=== PATIENT | female | born 2000 | race Caucasian/White ===

== ENCOUNTER → 2020-06-09 16:24 | Outpatient (CLI) | payer OTHER, MEDICAID, SELFPAY ==
[2020-06-09 17:27] LABS: Add Manual Diff / Slide Review NO; Basophils Absolute Auto 100 /uL (0-100); Basophils Percent Auto 0.8 % (0-2); Eosinophils Absolute Auto 200 /uL (0-450); Eosinophils Percent Auto 1.7 % (2-4); Hematocrit 39.4 % (36-46); Hemoglobin 13.3 g/dL (12.0-16.0); Lymphocytes Absolute Auto 2100 /uL (1100-4500); Lymphocytes Percent Auto 16.2 % (25-40); Mean Corpuscular HGB Conc 33.7 % (30-36); Mean Corpuscular Hemoglobin 30.3 PG (26-34); Mean Corpuscular Volume 90.1 fL (80-100); Monocytes Absolute Auto 1100 /uL (0-900); Monocytes Percent Auto 8.7 % (3-14); Neutrophils Absolute Auto 9300 /uL (1500-7000); Neutrophils Percent Auto 72.6 % (50-75); Platelet Count 438 X10^3/uL (150-400); Red Blood Cell Count 4.37 X10^6/uL (4.0-5.2); Red Cell Distribution Width 13.8 % (11.6-14.8); White Blood Cell Count 12.7 X10^3/uL (4.5-11.0)
[2020-06-09 17:38] LABS: Albumin 4.7 g/dL (3.5-5.0); Albumin Globulin Ratio 1.2 (1.0-2.8); Alkaline Phosphatase 265 U/L (38-126); Aspartate Aminotransferase 410 IU/L (14-36); BUN Creatinine Ratio 18.2 (6-22); Bilirubin Total 1.3 mg/dL (0.2-1.3); Blood Urea Nitrogen 12 mg/dL (7-17); Calcium 9.7 mg/dL (8.4-10.2); Carbon Dioxide 32 mmol/L (22-32); Chloride 102 mmol/L (98-107); Estimated Glomerular Filt Rate > 60.0 mL/min (>60); Globulin 3.9 g/dL (1.7-4.1); Glucose 99 mg/dL (70-100); HEMOLYSIS < 15 (0-50); Lipase 49 U/L (23-300); Potassium 4.2 mmol/L (3.4-5.1); Sodium 139 mmol/L (137-145); Total Protein 8.6 g/dL (6.3-8.2)
[2020-06-09 17:47] LABS: Alanine Aminotransferase 873 IU/L (<35)
== END ==
PROVIDERS: PCP Family Medicine; Referring Provider Family Medicine; Visit Provider Family Medicine
DX: K80.20 Calculus of gallbladder without cholecystitis without obstruction (principal)
CPT/HCPCS: 36415; 80053; 83690; 85025

== ENCOUNTER → 2020-06-10 12:13 | Outpatient (CLI) | payer OTHER, MEDICAID, SELFPAY ==
--- NOTE | 2020-06-10 12:21 | DI.CT.S_ITS ---
PROCEDURE: CT ABDOMEN PELVIS W CON INDICATIONS: History of cholelithiasis and ovarian cyst TECHNIQUE: After the administration of oral and intravenous contrast, 5 mm thick sections acquired from the diaphragms to the symphysis. 5 mm thick coronal and sagittal reformats were performed. For radiation dose reduction, the following was used: automated exposure control, adjustment of mA and/or kV according to patient size. COMPARISON: None. FINDINGS: Image quality: Excellent. ABDOMEN: Lung bases: Lung bases are clear. Heart size is normal. Solid organs: Liver is normal in size and enhancement. Gallbladder wall appears thickened. No radiopaque gallstones. Biliary system is dilated. There is mild intrahepatic biliary dilation. Common bile duct measures up to 11 mm. No common bile duct stones are identified. Pancreas enhances normally. Spleen is normal in size and enhancement. No adrenal nodules. Kidneys are normal in size and enhancement, without hydronephrosis. Peritoneum and bowel: Stomach, small bowel, and colon loops are normal in caliber. The 2nd portion of the duodenum appears thickened. There is colonic wall thickening involving the ascending colon, hepatic flexure, transverse colon, splenic flexure, descending colon and sigmoid colon consistent with colitis. Normal appendix. No free fluid or air. Nodes and vessels: No retroperitoneal or mesenteric adenopathy. Numerous small mesenteric lymph nodes are noted, nonspecific. Aorta and inferior vena cava are normal in caliber. Miscellaneous: No ventral hernias. PELVIS: Genitourinary: Bladder wall thickness is normal. Uterus is normal. There is a 3.6 cm cyst in the left adnexa behind the left ovary. Ovaries are otherwise unremarkable. Miscellaneous: No inguinal hernias or adenopathy. Bones: No suspicious bony lesions. No vertebral body compression fractures. IMPRESSION: 1. There is diffuse colonic wall thickening consistent with colitis. Differential diagnoses include inflammatory bowel disease versus infectious colitis. 2. Gallbladder wall appears thickened. No radiopaque gallstones. Recommend ultrasound or HIDA scan for further evaluation. 3. There is intrahepatic and extrahepatic biliary dilation. No obstructive intraductal stones are identified. Please correlate with serum bilirubin. MRCP is recommended for further evaluation if clinically indicated. 4. Duodenum appears thickened, which could be related to inflammatory bowel disease or infectious duodenitis. The area of thickened duodenum involves ampulla. 5. There is a 3.6 cm cyst in the left adnexa behind the left ovary, consistent with a paraovarian cyst. There is no free fluid in the cul-de-sac. Dictated by: Quan Brooke M.D. on 06/10/2020 at 13:43 Approved by: Quan Brooke M.D. on 06/10/2020 at 13:57
== END ==
PROVIDERS: PCP Family Medicine; Referring Provider Family Medicine; Visit Provider Family Medicine
DX: N83.202 Unspecified ovarian cyst, left side (principal); B17.9 Acute viral hepatitis, unspecified; K80.80 Other cholelithiasis without obstruction
CPT/HCPCS: 36415; 74177; 80053; 80074; 87389; Q9967

== ENCOUNTER → 2020-06-10 13:24 | Outpatient (CLI) | payer OTHER, MEDICAID, SELFPAY ==
[2020-06-10 14:49] LABS: Alanine Aminotransferase 646 IU/L (<35); Albumin 4.6 g/dL (3.5-5.0); Albumin Globulin Ratio 1.4 (1.0-2.8); Alkaline Phosphatase 211 U/L (38-126); Aspartate Aminotransferase 155 IU/L (14-36); BUN Creatinine Ratio 19.3 (6-22); Bilirubin Total 0.9 mg/dL (0.2-1.3); Blood Urea Nitrogen 11 mg/dL (7-17); Calcium 9.7 mg/dL (8.4-10.2); Carbon Dioxide 26 mmol/L (22-32); Chloride 98 mmol/L (98-107); Estimated Glomerular Filt Rate > 60.0 mL/min (>60); Globulin 3.3 g/dL (1.7-4.1); Glucose 88 mg/dL (70-100); HEMOLYSIS < 15 (0-50); Potassium 4.3 mmol/L (3.4-5.1); Sodium 135 mmol/L (137-145); Total Protein 7.9 g/dL (6.3-8.2)
[2020-06-10 18:23] LABS: HIV 1 & 2 Ab/Ag 4th Gen Combo NEGATIVE (NEGATIVE)
[2020-06-11 05:56] LABS: HBsAg Screen Negative (Negative); Hepatitis A Antibody IgM Negative (Negative); Hepatitis B Core Antibody IgM Negative (Negative); Hepatitis C Antibody <0.1 s/co ratio (0.0-0.9)
== END ==
PROVIDERS: PCP Family Medicine; Referring Provider Family Medicine; Visit Provider Family Medicine
DX: B17.9 Acute viral hepatitis, unspecified (principal); K80.80 Other cholelithiasis without obstruction; N83.209 Unspecified ovarian cyst, unspecified side
CPT/HCPCS: 36415; 80053; 80074; 87389

== ENCOUNTER → 2020-06-25 13:27 | Outpatient (CLI) | payer OTHER, MEDICAID, SELFPAY | PROVIDERS: PCP Family Medicine; Referring Provider Family Medicine; Visit Provider Family Medicine | DX: B17.0 Acute delta-(super) infection of hepatitis B carrier (principal); K80.80 Other cholelithiasis without obstruction; Z53.20 Procedure and treatment not carried out because of patient's decision for unspecified reasons | CPT/HCPCS: 74181 ==

== ENCOUNTER → 2020-07-06 15:00 | Outpatient (CLI) | payer OTHER, MEDICAID, SELFPAY ==
--- NOTE | 2020-07-06 15:02 | DI.MRI.S_ITS ---
PROCEDURE: MR ABDOMEN WO CON INDICATIONS: PERSISTENT DYSPEPSIA,EPIGASTIC ABDOMINAL PAIN TECHNIQUE: Coronal HASTE through the abdomen, axial 2-D FLASH in- and [id number], and breath-hold T2 FSE with fat saturation through the biliary system and pancreas. Oblique coronal and axial thin-slice HASTE, radial thick-slab HASTE centered on the extrahepatic bile ducts. Intravenous secretin: Not requested. COMPARISON: None. FINDINGS: Image quality: Excellent. Biliary system: CBD measures 1.1 cm. There is moderate intrahepatic biliary ductal dilatation. At least 2 filling defects are seen in the distal CBD, (18-19). Suspect choledocholithiasis. Gallbladder is filled with small gallstones. Pancreas: No pancreatic ductal dilatation. No peripancreatic fluid collection. No cystic lesion. Other solid organs: Liver is normal in size. Spleen is normal in size. No adrenal nodules. Both kidneys are normal in size, without hydronephrosis. Nodes and vessels: No retroperitoneal or mesenteric adenopathy by size criteria. Aorta and inferior vena cava are normal in size. Bowel and peritoneum: No bowel obstruction. No free fluid. Lung bases: No basal pleural effusions. Heart size is normal. Bones and soft tissues: No ventral hernias. Bone marrow is of normal overall signal. IMPRESSION: 1. Choledocholithiasis. Biliary ductal dilatation. -Recommend ERCP and/or intraoperative cholangiogram. 2. Gallbladder is filled with gallstones. 3. No pancreatic ductal dilatation. Comment: Findings were discussed with David Blair at the time of dictation. Dictated by: Aquiles Dyer M.D. on 07/06/2020 at 16:32 Approved by: Aquiles Dyer M.D. on 07/06/2020 at 16:44
== END ==
PROVIDERS: PCP Family Medicine; Referring Provider Family Medicine; Visit Provider Family Medicine
DX: R10.13 Epigastric pain (principal); K80.70 Calculus of gallbladder and bile duct without cholecystitis without obstruction; K83.8 Other specified diseases of biliary tract
CPT/HCPCS: 74181

== ENCOUNTER → 2020-07-07 14:31 | Outpatient (CLI) | payer OTHER, MEDICAID, SELFPAY ==
[2020-07-07 15:03] LABS: Add Manual Diff / Slide Review NO; Basophils Absolute Auto 100 /uL (0-100); Basophils Percent Auto 0.8 % (0-2); Eosinophils Absolute Auto 100 /uL (0-450); Eosinophils Percent Auto 1.3 % (2-4); Hematocrit 38.1 % (36-46); Lymphocytes Absolute Auto 2100 /uL (1100-4500); Lymphocytes Percent Auto 21.5 % (25-40); Mean Corpuscular Hemoglobin 30.5 PG (26-34); Mean Corpuscular Volume 89.7 fL (80-100); Monocytes Absolute Auto 900 /uL (0-900); Neutrophils Absolute Auto 6600 /uL (1500-7000); Neutrophils Percent Auto 67.4 % (50-75); Platelet Count 293 X10^3/uL (150-400); Red Blood Cell Count 4.25 X10^6/uL (4.0-5.2); Red Cell Distribution Width 14.1 % (11.6-14.8); White Blood Cell Count 9.8 X10^3/uL (4.5-11.0)
[2020-07-07 15:50] LABS: Alanine Aminotransferase 287 IU/L (<35); Albumin 4.4 g/dL (3.5-5.0); Albumin Globulin Ratio 1.4 (1.0-2.8); Alkaline Phosphatase 203 U/L (38-126); Aspartate Aminotransferase 99 IU/L (14-36); Blood Urea Nitrogen 7 mg/dL (7-17); Calcium 9.4 mg/dL (8.4-10.2); Carbon Dioxide 26 mmol/L (22-32); Chloride 104 mmol/L (98-107); Estimated Glomerular Filt Rate > 60.0 mL/min (>60); Globulin 3.2 g/dL (1.7-4.1); Glucose 94 mg/dL (70-100); HEMOLYSIS < 15 (0-50); Potassium 3.6 mmol/L (3.4-5.1); Sodium 141 mmol/L (137-145); Total Protein 7.6 g/dL (6.3-8.2)
== END ==
PROVIDERS: PCP Family Medicine; Referring Provider Family Medicine; Visit Provider Family Medicine
DX: B17.9 Acute viral hepatitis, unspecified (principal); K21.00 Gastro-esophageal reflux disease with esophagitis, without bleeding; K80.80 Other cholelithiasis without obstruction
CPT/HCPCS: 36415; 80053; 85025

== ENCOUNTER 2020-07-16 15:31 | Emergency (ER) | payer OTHER, MEDICAID, SELFPAY ==
[2020-07-16] VITALS (20 sets, daily range): BP systolic 99–124; BP diastolic 54–74; PULSE 42–73; RESP 15–34; TEMP 36.9; O2SAT 95–100; BMI 28.5
[2020-07-16] MEDS: ONDANSETRON 4 MG/2 ML INJ IV ×2 (16:10→17:41)
--- NOTE | 2020-07-16 16:13 | ED_ITS ---
HPI - Abdominal Pain <Jose Spencer DO - Last Filed: 07/18/20 00:56> General Chief Complaint: Abdominal Pain Stated Complaint: gallbladder pain Time Seen by Provider: 07/16/20 15:50 Source: patient Mode of arrival: Ambulatory Limitations: no limitations History of Present Illness HPI narrative: 20-year-old female daily smoker with history of GERD and known gallbladder disease presents with her significant other and a chief complaint of severe epigastric and right upper quadrant pain that radiates to the back. She has been having issues on and off for some time and has had ultrasound and even an MRCP. She has an existing appointment to have a cholecystectomy on August 05 but was told if she developed worsening symptoms to present to the emergency department. The MRCP was performed here on 07/06 and noted choledocholithiasis with biliary ductal dilatation. She has had no fever, chills or jaundice. She takes no blood thinners. She has been NPO to food since last night and has only had a few sips of water over the course of the day. She states her pain gets worse with eating, drinking and motion while improving with rest. It is sharp, stabbing and cramping and at times at 10/10. MD complaint: abdominal pain Onset (ago): hour(s) Pain Consistency: constant Location: RUQ and epigastric Severity: severe Quality: cramping, stabbing and dull Radiation: back Associated symptoms: nausea Related Data Home Medications Medication Instructions Recorded Confirmed acetaminophen 500 mg tablet 500 mg PO Q6H PRN 06/09/20 06/10/20 calcium carbonate PO 06/09/20 06/10/20 Previous Rx's Medication Instructions Recorded pantoprazole 40 mg tablet,delayed 40 mg PO DAILY #30 tab 06/09/20 release sucralfate 1 gram tablet 1 g PO BID #60 tab 06/09/20 lorazepam 0.5 mg tablet 0.5 mg PO DAILY PRN #3 tab 06/26/20 Allergies Allergy/AdvReac Type Severity Reaction Status Date / Time Tide Laundry Detergent Allergy Intermediate Skin Uncoded 06/10/20 11:36 Irritation Review of Systems <Jose Spencer DO - Last Filed: 07/18/20 00:56> Constitutional Constitutional: Denies chills, Denies fatigue, Denies fever(s), Denies frequent falls, Denies lethargy and Denies weakness Eyes Eyes: Denies change in vision, Denies eye discharge, Denies irritation and Denies loss of vision ENT Ears, Nose, Mouth, and Throat: Denies change in voice, Denies dizziness, Denies neck pain, Denies sore throat and Denies throat swelling Cardiovascular Cardiovascular: Denies chest pain, Denies irregular heart rhythm, Denies lightheadedness, Denies palpitations, Denies dyspnea, Denies dyspnea on exertion and Denies orthopnea Respiratory Respiratory: Denies cough, Denies dyspnea, Denies dyspnea on exertion and Denies wheezing Gastrointestinal Gastrointestinal: Reports abdominal pain, Denies change in bowel habits, Denies diarrhea, Reports nausea and Denies vomiting Musculoskeletal Musculoskeletal: Denies neck pain and Denies numbness Integumentary/Breasts Skin/Breast: Denies pruritus, Denies erythema, Denies rash and Denies wounds Neurologic Neurologic: Denies behavioral changes, Denies confusion, Denies dizziness, Denies frequent falls, Denies loss of vision, Denies numbness and Denies weakness Psychiatric Psychiatric: Denies anxiety, Denies behavioral changes, Denies confusion, Denies depression, Denies homicidal ideation and Denies suicidal ideation Endocrine Endocrine: Denies fatigue, Denies flushing and Denies palpitations Hematologic/Lymphatic Hematologic/Lymphatic: Denies easy bruising Allergic/Immunologic Allergic/Immunologic: Denies urticaria, Denies throat swelling and Denies w heezing Patient History <Jose Spencer DO - Last Filed: 07/18/20 00:56> Medical History Acute hepatitis Asbestosis (~2017) Choledocholithiasis Cholelithiasis GERD (gastroesophageal reflux disease) Ovarian cyst (~2020) Family History Mother Mental health problem Social History Smoking Status: Current every day smoker Tobacco: How many years used: 2 quit status: considering quitting second hand exposure: Yes (Others smoke in house ) alcohol intake: current (1-2 drinks per year ) substance use type: marijuana (1g per day ) Smoking Status: Current every day smoker alcohol intake frequency: 0-2 drinks per day Substance Use Type: marijuana Exam <Jose Spencer DO - Last Filed: 07/18/20 00:56> Narrative Exam Narrative: GENERAL: [20] year old patient appears stated age. Well- nourished, well-developed patient, in mild distress. HEAD: Atraumatic. Normocephalic. EYES: Pupils equal round and reactive. Extraocular motions intact. No scleral icterus. No injection or drainage. ENT: Nose without bleeding, purulent drainage. Throat without erythema, tonsilla r hypertrophy or exudate. Airway patent. NECK: Trachea midline. Non tender CARDIOVASCULAR: Regular rate and rhythm without murmurs, gallops, or rubs. RESPIRATORY: Clear to auscultation. Breath sounds equal bilaterally. No wheezes, rales, or rhonchi. GASTROINTESTINAL: Abdomen soft, severe epigastric and right upper quadrant pain nondistended. EXTREMITIES: No edema or joint tenderness. BACK: Nontender without deformity or crepitance. No flank tenderness. NEURO: AOx3. SKIN: Mild jaundice. No rash or erythema of visible areas Initial Vital Signs Initial Vital Signs: Vital Signs Temperature 98.5 F 07/16/20 15:42 Pulse Rate 73 07/16/20 15:42 Respiratory Rate 16 07/16/20 15:42 Blood Pressure 112/71 07/16/20 15:42 Pulse Oximetry 98 07/16/20 15:42 <Uziel Krishnan DO - Last Filed: 07/16/20 21:45> Initial Vital Signs Initial Vital Signs: Vital Signs Temperature 98.5 F 07/16/20 15:42 Pulse Rate 73 07/16/20 15:42 Respiratory Rate 16 07/16/20 15:42 Blood Pressure 112/71 07/16/20 15:42 Pulse Oximetry 98 07/16/20 15:42 Course <Jose Spencer DO - Last Filed: 07/18/20 00:56> Orders Ordered: Discontinued Medications Hydromorphone HCl (Hydromorphone 0.5 Mg Inj) 0.5 mg IV NOW ONE Stop: 07/16/20 17:36 Last Admin: 07/16/20 17:42 Dose: 0.5 mg Documented by: RIVERA Sodium Chloride (Normal Saline 0.9%) 1,000 mls @ 1,000 mls/hr IV BOLUS ONE Stop: 07/16/20 18:34 Last Infusion: 07/16/20 19:32 Dose: 0 mls/hr Documented by: Admin: 07/16/20 17:41 Dose: 1,000 mls/hr Documented by: RIVERA Ceftriaxone Sodium/Dextrose (Rocephin) 2 gm in 50 mls @ 100 mls/hr IV NOW ONE Stop: 07/16/20 18:30 Last Infusion: 07/16/20 19:12 Dose: 0 mls/hr Documented by: Admin: 07/16/20 18:16 Dose: 100 mls/hr Documented by: RIVERA Ondansetron HCl (Ondansetron 4 Mg/2 Ml Inj) 4 mg IV NOW ONE Stop: 07/16/20 16:04 Last Admin: 07/16/20 16:10 Dose: 4 mg Documented by: RIVERA Ondansetron HCl (Ondansetron 4 Mg/2 Ml Inj) 4 mg IV Q4HR PRN PRN Reason: Nausea And Vomiting Last Admin: 07/16/20 17:41 Dose: 4 mg Documented by: RIVERA Consultations Consultation #1: [id number] - [facility] contacted, but no access to ERCP for at least two days 1726 - awaiting call back from [facility] [address] [facility]: no beds available Vital Signs Vital signs: Vital Signs - 8 hr 07/16/20 15:42 07/16/20 15:59 07/16/20 16:00 Temperature 98.5 F Pulse Rate 73 68 71 Respiratory Rate 16 Blood Pressure 112/71 Pulse Oximetry 98 100 100 07/16/20 16:27 07/16/20 16:30 07/16/20 17:00 Temperature Pulse Rate 52 L 49 L 50 L Respiratory Rate 16 Blood Pressure 101/57 L 99/54 L 106/56 L Pulse Oximetry 100 99 98 07/16/20 17:22 07/16/20 17:34 07/16/20 18:00 Temperature Pulse Rate 49 L 51 L Respiratory Rate 16 15 24 Blood Pressure 119/74 Pulse Oximetry 98 100 99 07/16/20 18:30 07/16/20 19:00 07/16/20 19:30 Temperature Pulse Rate 57 L 51 L 49 L Respiratory Rate 24 Blood Pressure Pulse Oximetry 99 99 100 07/16/20 20:00 Temperature Pulse Rate Respiratory Rate Blood Pressure Pulse Oximetry 100 <Uziel Krishnan, DO - Last Filed: 07/16/20 21:45> Orders Ordered: Discontinued Medications Hydromorphone HCl (Hydromorphone 0.5 Mg Inj) 0.5 mg IV NOW ONE Stop: 07/16/20 17:36 Last Admin: 07/16/20 17:42 Dose: 0.5 mg Documented by: RIVERA Sodium Chloride (Normal Saline 0.9%) 1,000 mls @ 1,000 mls/hr IV BOLUS ONE Stop: 07/16/20 18:34 Last Infusion: 07/16/20 19:32 Dose: 0 mls/hr Documented by: Admin: 07/16/20 17:41 Dose: 1,000 mls/hr Documented by: RIVERA Ceftriaxone Sodium/Dextrose (Rocephin) 2 gm in 50 mls @ 100 mls/hr IV NOW ONE Stop: 07/16/20 18:30 Last Infusion: 07/16/20 19:12 Dose: 0 mls/hr Documented by: Admin: 07/16/20 18:16 Dose: 100 mls/hr Documented by: RIVERA Ondansetron HCl (Ondansetron 4 Mg/2 Ml Inj) 4 mg IV NOW ONE Stop: 07/16/20 16:04 Last Admin: 07/16/20 16:10 Dose: 4 mg Documented by: RIVERA Ondansetron HCl (Ondansetron 4 Mg/2 Ml Inj) 4 mg IV Q4HR PRN PRN Reason: Nausea And Vomiting Last Admin: 07/16/20 17:41 Dose: 4 mg Documented by: RIVERA Vital Signs Vital signs: Vital Signs - 8 hr 07/16/20 15:42 07/16/20 15:59 07/16/20 16:00 Temperature 98.5 F Pulse Rate 73 68 71 Respiratory Rate 16 Blood Pressure 112/71 Pulse Oximetry 98 100 100 07/16/20 16:27 07/16/20 16:30 07/16/20 17:00 Temperature Pulse Rate 52 L 49 L 50 L Respiratory Rate 16 Blood Pressure 101/57 L 99/54 L 106/56 L Pulse Oximetry 100 99 98 07/16/20 17:22 07/16/20 17:34 07/16/20 18:00 Temperature Pulse Rate 49 L 51 L Respiratory Rate 16 15 24 Blood Pressure 119/74 Pulse Oximetry 98 100 99 07/16/20 18:30 07/16/20 19:00 07/16/20 19:30 Temperature Pulse Rate 57 L 51 L 49 L Respiratory Rate 24 Blood Pressure Pulse Oximetry 99 99 100 07/16/20 20:00 Temperature Pulse Rate Respiratory Rate Blood Pressure Pulse Oximetry 100 MDM - Abdominal Pain <Jose Spencer DO - Last Filed: 07/18/20 00:56> Lab Data Result diagrams: 07/16/20 16:00 07/16/20 16:00 Labs: Lab Results 07/16/20 07/16/20 07/16/20 Range/Units 16:00 16:00 16:45 WBC 8.1 (4.5-11.0) X10^3/uL RBC 4.29 (4.0-5.2) X10^6/uL Hgb 13.1 (12.0-16.0) g/dL Hct 38.5 (36-46) % MCV 89.7 (80-100) fL MCH 30.5 (26-34) PG MCHC 33.9 (30-36) % RDW 14.0 (11.6-14.8) % Plt Count 328 (150-400) X10^3/uL Neut % (Auto) 66.2 (50-75) % Lymph % (Auto) 19.2 L (25-40) % Tyrrell % (Auto) 12.2 (3-14) % Eos % (Auto) 1.5 L (2-4) % Baso % (Auto) 0.9 (0-2) % Neut # (Auto) 5300 (0090-7858) /uL Lymph # (Auto) 1500 (7330-6118) /uL Tyrrell # (Auto) 1000 H (0-900) /uL Eos # (Auto) 100 (0-450) /uL Baso # (Auto) 100 (0-100) /uL Sodium 141 (137-145) mmol/L Potassium 3.8 (3.4-5.1) mmol/L Chloride 106 (98-107) mmol/L Carbon Dioxide 26 (22-32) mmol/L BUN 6 L (7-17) mg/dL Creatinine 0.56 (0.52-1.04) mg/dL Estimated GFR > 60.0 (>60) mL/min BUN/Creatinine Ratio 10.7 (6-22) Glucose 112 H (70-100) mg/dL Calcium 9.6 (8.4-10.2) mg/dL Total Bilirubin 2.6 H (0.2-1.3) mg/dL AST 365 H (14-36) IU/L ALT 443 H (<35) IU/L Alkaline Phosphatase 260 H (38-126) U/L Total Protein 7.7 (6.3-8.2) g/dL Albumin 4.4 (3.5-5.0) g/dL Globulin 3.3 (1.7-4.1) g/dL Albumin/Globulin Ratio 1.3 (1.0-2.8) Lipase 43106 H (23-300) U/L SARS-CoV-2 (PCR) Negative (Negative) Point of care testing: Point of Care Testing Test Results Negative Urine Dip Bedside Urine Glucose Negative Bedside Urine Bilirubin ++ 2 Bedside Urine Ketone - Negative Urine Specific [place] 1.015 Bedside Urine Occult Blood - Negative Bedside Urine pH 8 Bedside Urine Protein +/- 15 Bedside Urine Urobilinogen 2+ 4mg Bedside Urine Nitrite - Negative Bedside Urine Leukocytes +/- 15 Esterase Imaging Data US - abdomen: Radiologist's Impression: [address] [id number] ReportSigned Patient: Caroline Collado BMR#: [id number]: 2000Acct:[id number]/Sex: 20 / FDate of Service: 07/16/20Loc: EDAccession Number: [id number] Procedure: US abdomen limited Ordering Provider: Jose Spencer D.O. PROCEDURE: US ABDOMEN LIMITED INDICATIONS: severe epigastric pain, nausea and vomiting TECHNIQUE: Real-time scanning was performed of the abdominal and retroperitoneal organs, with image documentation. COMPARISON: Located Within [facility], , ABDOMEN WO CON, 07/06/2020, 15:27. FINDINGS: Liver: Liver is normal in size and homogeneous in echotexture. Gallbladder: Redemonstration of innumerable gallstones. Borderline gallbladder wall thickening. No pericholecystic fluid. There is a positive sonographic Pardo sign per transportation modeler is report. Biliary ducts: Intrahepatic bile ducts are non-dilated. Extrahepatic bile duct caliber measures 12 mm. Known choledocholithiasis is not visualized sonographically. Normal is 6-7 mm or less in diameter, or 10 mm or less post-cholecystectomy. Pancreas: Visualized portions of the pancreas are sonographically normal. Miscellaneous: No free abdominal fluid. IMPRESSION: 1. Cholelithiasis with borderline gallbladder wall thickening and positive sonographic Pardo sign suspicious for acute cholecystitis. 2. Persistent dilatation of the common bile duct. Known choledocholithiasis is not visualized sonographically. Dictated by: Juvenal Betancur M.D. on 07/16/2020 at 16:28 Approved by: Juvenal Betancur M.D. on 07/16/2020 at 16:31 <Uziel Krishnan DO - Last Filed: 07/16/20 21:45> Lab Data Attestation: I reviewed the patient's lab results. Labs: Lab Results 07/16/20 07/16/20 07/16/20 Range/Units 16:00 16:00 16:45 WBC 8.1 (4.5-11.0) X10^3/uL RBC 4.29 (4.0-5.2) X10^6/uL Hgb 13.1 (12.0-16.0) g/dL Hct 38.5 (36-46) % MCV 89.7 (80-100) fL MCH 30.5 (26-34) PG MCHC 33.9 (30-36) % RDW 14.0 (11.6-14.8) % Plt Count 328 (150-400) X10^3/uL Neut % (Auto) 66.2 (50-75) % Lymph % (Auto) 19.2 L (25-40) % Tyrrell % (Auto) 12.2 (3-14) % Eos % (Auto) 1.5 L (2-4) % Baso % (Auto) 0.9 (0-2) % Neut # (Auto) 5300 (8859-2919) /uL Lymph # (Auto) 1500 (0432-5978) /uL Tyrrell # (Auto) 1000 H (0-900) /uL Eos # (Auto) 100 (0-450) /uL Baso # (Auto) 100 (0-100) /uL Sodium 141 (137-145) mmol/L Potassium 3.8 (3.4-5.1) mmol/L Chloride 106 (98-107) mmol/L Carbon Dioxide 26 (22-32) mmol/L BUN 6 L (7-17) mg/dL Creatinine 0.56 (0.52-1.04) mg/dL Estimated GFR > 60.0 (>60) mL/min BUN/Creatinine Ratio 10.7 (6-22) Glucose 112 H (70-100) mg/dL Calcium 9.6 (8.4-10.2) mg/dL Total Bilirubin 2.6 H (0.2-1.3) mg/dL AST 365 H (14-36) IU/L ALT 443 H (<35) IU/L Alkaline Phosphatase 260 H (38-126) U/L Total Protein 7.7 (6.3-8.2) g/dL Albumin 4.4 (3.5-5.0) g/dL Globulin 3.3 (1.7-4.1) g/dL Albumin/Globulin Ratio 1.3 (1.0-2.8) Lipase 29087 H (23-300) U/L SARS-CoV-2 (PCR) Negative (Negative) Point of care testing: Point of Care Testing Test Results Negative Urine Dip Bedside Urine Glucose Negative Bedside Urine Bilirubin ++ 2 Bedside Urine Ketone - Negative Urine Specific Prompton 1.015 Bedside Urine Occult Blood - Negative Bedside Urine pH 8 Bedside Urine Protein +/- 15 Bedside Urine Urobilinogen 2+ 4mg Bedside Urine Nitrite - Negative Bedside Urine Leukocytes +/- 15 Esterase Imaging Data US - abdomen: Radiologist's Impression: [address] [id number] ReportSigned Patient: Caroline Collado BMR#: [id number]: 2000Acct:[id number]/Sex: 20 / FDate of Service: 07/16/20Loc: EDAccession Number: [id number] Procedure: US abdomen limited Ordering Provider: Jose Spencer D.O. PROCEDURE: US ABDOMEN LIMITED INDICATIONS: severe epigastric pain, nausea and vomiting TECHNIQUE: Real-time scanning was performed of the abdominal and retroperitoneal organs, with image documentation. COMPARISON: Located Within [facility], MR, MR ABDOMEN WO CON, 07/06/2020, 15:27. FINDINGS: Liver: Liver is normal in size and homogeneous in echotexture. Gallbladder: Redemonstration of innumerable gallstones. Borderline gallbladder wall thickening. No pericholecystic fluid. There is a positive sonographic Pardo sign per transportation modeler is report. Biliary ducts: Intrahepatic bile ducts are non-dilated. Extrahepatic bile duct caliber measures 12 mm. Known choledocholithiasis is not visualized sonographically. Normal is 6-7 mm or less in diameter, or 10 mm or less post-cholecystectomy. Pancreas: Visualized portions of the pancreas are sonographically normal. Miscellaneous: No free abdominal fluid. IMPRESSION: 1. Cholelithiasis with borderline gallbladder wall thickening and positive s onographic Pardo sign suspicious for acute cholecystitis. 2. Persistent dilatation of the common bile duct. Known choledocholithiasis is not visualized sonographically. Dictated by: Juvenal Betancur M.D. on 07/16/2020 at 16:28 Approved by: Juvenal Betancur M.D. on 07/16/2020 at 16:31 CT scan - abdomen/pelvis: Radiologist's Impression: [address] [id number] Scan ReportSigned Patient: Angelica Collado BMR#: [id number]: 2000Acct:[id number]/Sex: 20 / FDate of Service: 06/10/20Loc: CTAccession Number: [id number] Procedure: CT abdomen pelvis w con Ordering Provider: David Blair D.O. PROCEDURE: CT ABDOMEN PELVIS W CON INDICATIONS: History of cholelithiasis and ovarian cyst TECHNIQUE: After the administration of oral and intravenous contrast, 5 mm thick sections acquired from the diaphragms to the symphysis. 5 mm thick coronal and sagittal reformats were performed. For radiation dose reduction, the following was used: automated exposure control, adjustment of mA and/or kV according to patient size. COMPARISON: None. FINDINGS: Image quality: Excellent. ABDOMEN: Lung bases: Lung bases are clear. Heart size is normal. Solid organs: Liver is normal in size and enhancement. Gallbladder wall appears thickened. No radiopaque gallstones. Biliary system is dilated. There is mild intrahepatic biliary dilation. Common bile duct measures up to 11 mm. No common bile duct stones are identified. Pancreas enhances normally. Spleen is normal in size and enhancement. No adrenal nodules. Kidneys are normal in size and enhancement, without hydronephrosis. Peritoneum and bowel: Stomach, small bowel, and colon loops are normal in caliber. The 2nd portion of the duodenum appears thickened. There is colonic wall thickening involving the ascending colon, hepatic flexure, transverse colon, splenic flexure, descending colon and sigmoid colon consistent with colitis. Normal appendix. No free fluid or air. Nodes and vessels: No retroperitoneal or mesenteric adenopathy. Numerous small mesenteric lymph nodes are noted, nonspecific. Aorta and inferior vena cava are normal in caliber. Miscellaneous: No ventral hernias. PELVIS: Genitourinary: Bladder wall thickness is normal. Uterus is normal. There is a 3.6 cm cyst in the left adnexa behind the left ovary. Ovaries are otherwise unremarkable. Miscellaneous: No inguinal hernias or adenopathy. Bones: No suspicious bony lesions. No vertebral body compression fractures. IMPRESSION: 1. There is diffuse colonic wall thickening consistent with colitis. Differential diagnoses include inflammatory bowel disease versus infectious colitis. 2. Gallbladder wall appears thickened. No radiopaque gallstones. Recommend ultrasound or HIDA scan for further evaluation. 3. There is intrahepatic and extrahepatic biliary dilation. No obstructive intraductal stones are identified. Please correlate with serum bilirubin. MRCP is recommended for further evaluation if clinically indicated. 4. Duodenum appears thickened, which could be related to inflammatory bowel disease or infectious duodenitis. The area of thickened duodenum involves ampulla. 5. There is a 3.6 cm cyst in the left adnexa behind the left ovary, consistent with a paraovarian cyst. There is no free fluid in the cul-de-sac. Dictated by: Quan Brooke M.D. on 06/10/2020 at 13:43 Approved by: Quan Brooke M.D. on 06/10/2020 at 13:57 MRCP: Radiologist's Impression: [address] [id number] Resonance ReportSigned Patient: Angelica Collado BMR#: [id number]: 2000Acct:[id number]/Sex: 20 / FDate of Service: 07/06/20Loc: MRIAccession Number: [id number] Procedure: MR abdomen wo con Ordering Provider: David Blair D.O. PROCEDURE: MR ABDOMEN WO CON INDICATIONS: PERSISTENT DYSPEPSIA,EPIGASTIC ABDOMINAL PAIN TECHNIQUE: Coronal HASTE through the abdomen, axial 2-D FLASH in- and [id number], and breath-hold T2 FSE with fat saturation through the biliary system and pancreas. Oblique coronal and axial thin-slice HASTE, radial thick-slab HASTE centered on the extrahepatic bile ducts. Intravenous secretin: Not requested. COMPARISON: None. FINDINGS: Image quality: Excellent. Biliary system: CBD measures 1.1 cm. There is moderate intrahepatic biliary ductal dilatation. At least 2 filling defects are seen in the distal CBD, (18-19). Suspect choledocholithiasis. Gallbladder is filled with small gallstones. Pancreas: No pancreatic ductal dilatation. No peripancreatic fluid collection. No cystic lesion. Other solid organs: Liver is normal in size. Spleen is normal in size. No adrenal nodules. Both kidneys are normal in size, without hydronephrosis. Nodes and vessels: No retroperitoneal or mesenteric adenopathy by size criteria. Aorta and inferior vena cava are normal in size. Bowel and peritoneum: No bowel obstruction. No free fluid. Lung bases: No basal pleural effusions. Heart size is normal. Bones and soft tissues: No ventral hernias. Bone marrow is of normal overall signal. IMPRESSION: 1. Choledocholithiasis. Biliary ductal dilatation. -Recommend ERCP and/or intraoperative cholangiogram. 2. Gallbladder is filled with gallstones. 3. No pancreatic ductal dilatation. Comment: Findings were discussed with David Blair at the time of dictation. Dictated by: Aquiles Dyer M.D. on 07/06/2020 at 16:32 Approved by: Aquiles Dyer M.D. on 07/06/2020 at 16:44 MDM Narrative Medical decision making narrative: Dr Krishnan: Received turned over from Dr. Spencer reviewed patient's history and physical. Reviewed patient's prior medical notes and labs. Introduced my self and performed my own independent exam. Patient has been under the workup as an outpatient for right upper quadrant abdominal pain. Had a CT scan and a MRCP performed as an outpatient prior to this visit. The reports from these 2 studies are included in this note for information purposes. They were not done during this ED visit. The MRCP did show choledocholithiasis. At that time her LFTs only slightly elevated she had a normal lipase. Return to the emergency department today for right upper quadrant discomfort. Now today she does have significantly worsening of her LFTs and also a worsening of her lipase. Ultrasound today continues to show cholelithiasis/cholecystitis. Patient symptoms controlled with pain medicine and nausea medicine. She was given 2 g of Rocephin here in the ER by Dr. Spencer we discussed the case with Dr. Chavez who is on-call for [facility] who states that her service would consult on the patient if she was transferred. She did state that they had the capability of doing ERCP if the patient needed this. Had then discussed the case with Dr. Pabon with General surgery who accepts the patient in transfer. Discuss all of this with the patient. Patient is stable for transport. Discharge Plan Departure Patient Disposition: [facility] Clinical Impression: Choledocholithiasis with acute cholecystitis Acute pancreatitis Qualifiers: Pancreatitis type: biliary Prescriptions: No Action lorazepam 0.5 mg tablet 0.5 mg PO DAILY PRN (Reason: sedation) Qty: 3 RF: 0 acetaminophen [Tylenol Extra Strength] 500 mg tablet 500 mg PO Q6H PRNRF: 0 calcium carbonate PO RF: 0 pantoprazole 40 mg tablet,delayed release (DR/EC) 40 mg PO DAILY Qty: 30 RF: 1 sucralfate [Carafate] 1 gram tablet 1 g PO BID Qty: 60 RF: 1 Referrals: David Blair DO [Primary Care Provider] -
[2020-07-16 16:15] LABS: Add Manual Diff / Slide Review NO; Basophils Absolute Auto 100 /uL (0-100); Basophils Percent Auto 0.9 % (0-2); Eosinophils Absolute Auto 100 /uL (0-450); Eosinophils Percent Auto 1.5 % (2-4); Hematocrit 38.5 % (36-46); Hemoglobin 13.1 g/dL (12.0-16.0); Lymphocytes Absolute Auto 1500 /uL (1100-4500); Lymphocytes Percent Auto 19.2 % (25-40); Mean Corpuscular HGB Conc 33.9 % (30-36); Mean Corpuscular Hemoglobin 30.5 PG (26-34); Mean Corpuscular Volume 89.7 fL (80-100); Monocytes Absolute Auto 1000 /uL (0-900); Monocytes Percent Auto 12.2 % (3-14); Neutrophils Absolute Auto 5300 /uL (1500-7000); Neutrophils Percent Auto 66.2 % (50-75); Platelet Count 328 X10^3/uL (150-400); Red Blood Cell Count 4.29 X10^6/uL (4.0-5.2); White Blood Cell Count 8.1 X10^3/uL (4.5-11.0)
--- NOTE | 2020-07-16 16:16 | DI.US.S_ITS ---
PROCEDURE: US ABDOMEN LIMITED INDICATIONS: severe epigastric pain, nausea and vomiting TECHNIQUE: Real-time scanning was performed of the abdominal and retroperitoneal organs, with image documentation. COMPARISON: [facility], MR, MR ABDOMEN WO CON, 07/06/2020, 15:27. FINDINGS: Liver: Liver is normal in size and homogeneous in echotexture. Gallbladder: Redemonstration of innumerable gallstones. Borderline gallbladder wall thickening. No pericholecystic fluid. There is a positive sonographic Pardo sign per hand candle molder is report. Biliary ducts: Intrahepatic bile ducts are non-dilated. Extrahepatic bile duct caliber measures 12 mm. Known choledocholithiasis is not visualized sonographically. Normal is 6-7 mm or less in diameter, or 10 mm or less post-cholecystectomy. Pancreas: Visualized portions of the pancreas are sonographically normal. Miscellaneous: No free abdominal fluid. IMPRESSION: 1. Cholelithiasis with borderline gallbladder wall thickening and positive sonographic Pardo sign suspicious for acute cholecystitis. 2. Persistent dilatation of the common bile duct. Known choledocholithiasis is not visualized sonographically. Dictated by: Juvenal Betancur M.D. on 07/16/2020 at 16:28 Approved by: Juvenal Betancur M.D. on 07/16/2020 at 16:31
[2020-07-16 16:23] LABS: Alanine Aminotransferase 443 IU/L (<35); Albumin 4.4 g/dL (3.5-5.0); Albumin Globulin Ratio 1.3 (1.0-2.8); Alkaline Phosphatase 260 U/L (38-126); Aspartate Aminotransferase 365 IU/L (14-36); BUN Creatinine Ratio 10.7 (6-22); Bilirubin Total 2.6 mg/dL (0.2-1.3); Blood Urea Nitrogen 6 mg/dL (7-17); Calcium 9.6 mg/dL (8.4-10.2); Carbon Dioxide 26 mmol/L (22-32); Chloride 106 mmol/L (98-107); Estimated Glomerular Filt Rate > 60.0 mL/min (>60); Globulin 3.3 g/dL (1.7-4.1); Glucose 112 mg/dL (70-100); HEMOLYSIS < 15 (0-50); Potassium 3.8 mmol/L (3.4-5.1); Sodium 141 mmol/L (137-145); Total Protein 7.7 g/dL (6.3-8.2)
[2020-07-16 17:02] LABS: Lipase 24655 U/L (23-300)
[2020-07-16 17:32] LABS: COVID19 - ADMIT (NP swab/PCR) Negative (Negative)
[2020-07-16] MEDS: SODIUM CHLORIDE 0.9% 1,000 ML 1000 ML IV (17:41)
[2020-07-16] MEDS: HYDROMORPHONE 0.5 MG INJ IV (17:42)
[2020-07-16] MEDS: CEFTRIAXONE 2 GM/50 ML FROZ.PIGGY IV (18:16)
== END 2020-07-16 23:15 | disposition short-term general hospital (02) ==
PROVIDERS: Emergency Medicine; Emergency Provider Emergency Medicine; PCP Family Medicine
DX: K80.42 Calculus of bile duct with acute cholecystitis without obstruction (principal); K85.90 Acute pancreatitis without necrosis or infection, unspecified; Z20.822 Contact with and (suspected) exposure to COVID-19
CPT/HCPCS: 36415; 76705; 80053; 81003; 81025; 83690; 85025; 87635; 93005; 93010; 96365; 96375; 96376; 99284; C9803; J0696; J1170; J2405

== ENCOUNTER 2020-10-22 11:12 | Emergency (ER) | payer OTHER, MEDICAID, SELFPAY ==
[2020-10-22 11:27] VITALS: BP 121/73; PULSE 58; RESP 14; TEMP 36.3; O2SAT 100; BMI 29.9
== END 2020-10-22 14:28 | disposition left against medical advice (07) ==
PROVIDERS: Emergency Provider Emergency Medicine; PCP Family Medicine
CPT/HCPCS: 99281

== ENCOUNTER → 2021-02-16 10:54 | Outpatient (CLI) | payer OTHER, MEDICAID, SELFPAY ==
[2021-02-16 11:37] LABS: Appearance Urine UA CLEAR; Bilirubin Urine UA 2+ (NEGATIVE); Color Urine UA YELLOW; Glucose Urine UA TRACE g/dL (Negative); Ketones Urine UA 2+ (NEGATIVE); Leukocyte Esterase Urine UA 1+ (NEGATIVE); Nitrite Urine UA NEGATIVE (Negative); Occult Blood Urine UA NEGATIVE (Negative); Protein Urine UA 1+ (Negative); Specific Gravity Urine UA 1.015 (1.000-1.035)
[2021-02-16 11:40] LABS: Amorphous Sediment Urine 1+; Bacteria Urine Moderate (10-30); RBC Urine None Seen (0-5/HPF); Squamous Epithelial Cell Urine 1-5 /HPF (0-5/HPF); WBC Urine 1-5/HPF (0-5/HPF)
[2021-02-16 11:41] LABS: Culture Indicated Urine Specimen Cultured
[2021-02-16 11:59] LABS: Add Manual Diff / Slide Review NO; Basophils Absolute Auto 0 /uL (0-100); Basophils Percent Auto 0.2 % (0-2); Eosinophils Absolute Auto 0 /uL (0-450); Eosinophils Percent Auto 0.5 % (2-4); Hematocrit 38.3 % (36-46); Hemoglobin 13.3 g/dL (12.0-16.0); Lymphocytes Absolute Auto 1900 /uL (1100-4500); Lymphocytes Percent Auto 20.4 % (25-40); Mean Corpuscular HGB Conc 34.8 % (30-36); Mean Corpuscular Hemoglobin 30.9 PG (26-34); Mean Corpuscular Volume 88.9 fL (80-100); Monocytes Absolute Auto 700 /uL (0-900); Monocytes Percent Auto 7.5 % (3-14); Neutrophils Absolute Auto 6700 /uL (1500-7000); Neutrophils Percent Auto 71.4 % (50-75); Platelet Count 321 X10^3/uL (150-400); Red Blood Cell Count 4.31 X10^6/uL (4.0-5.2); White Blood Cell Count 9.4 X10^3/uL (4.5-11.0)
[2021-02-17 08:10] LABS: RPR Screen Non Reactive (Non Reactive); Varicella IgG Antibody 421 index (Immune >165)
[2021-02-17 19:02] LABS: HIV 1 & 2 Ab/Ag 4th Gen Combo NEGATIVE (NEGATIVE); Hep C Virus Ab w/Reflex Quant NEGATIVE s/c (NEGATIVE); Hepatitis B Surface Antigen NEGATIVE s/c (NEGATIVE); Rubella Antibody IgG 28.8 IU/mL (>15)
== END ==
PROVIDERS: PCP Family Medicine; Referring Provider Family Medicine; Visit Provider Family Medicine
DX: Z34.90 Encounter for supervision of normal pregnancy, unspecified, unspecified trimester (principal)
CPT/HCPCS: 36415; 80055; 81003; 81015; 86787; 86803; 86850; 86900; 86901; 87086; 87389

== ENCOUNTER → 2021-04-29 10:31 | Outpatient (CLI) | payer OTHER, MEDICAID, SELFPAY ==
--- NOTE | 2021-04-29 10:32 | DI.US.S_ITS ---
PROCEDURE: US OB >= 14 WEEKS FETUS INDICATIONS: ANATOMY OUTSIDE/PRIOR DATING DATA: Last menstrual period (LMP): Unknown. LMP-based estimated date of delivery (GUSTABO): Unknown. First dating scan (date and location): 04/29/2021. Estimated date of delivery (GUSTABO) from first dating scan: 08/21/2021. TECHNIQUE: Real-time scanning was performed of the fetus, with image documentation and biometric measurements. Endovaginal scanning: None COMPARISON: None. FINDINGS: General: A single living intrauterine gestation is present. Presentation: Vertex. Placenta: Placental position is anterior, without previa. Amniotic fluid index: 14.6 cm, normal range is 5-24 cm. heart rate: 158 beats per minute. Maternal cervical canal: 3.8 cm long. Normal lower limit is 2.5 cm. biometrics: Biparietal diameter: 5.8 cm, 23 week 5 day Head circumference: 21.3 cm, 23 week 3 day Abdominal circumference: 18.6 cm, 23 week 3 day Femur length: 4.3 cm, 24 week 0 day Clinically estimated gestational age: Not applicable Composite gestational age from present scan: 23 week 5 day Estimated weight and percentile: 614 g Anatomic survey: Neuro: Ventricles are non-dilated at less than 10 mm. Cisterna magna is normal at 3-11 mm. Cerebellum is normal in size and morphology. Nuchal skin fold: Normal at less than 6 mm between 14-21 weeks gestational age. Face: Not well visualized due to positioning Spine: No evidence for spina bifida. Heart: Not well visualized due to positioning Diaphragm: Diaphragm is intact. Stomach: Left-sided stomach is present. Kidneys: No hydronephrosis. Normal is less than 5 mm in 2nd trimester, less than 7 mm in 3rd trimester. Cord: 3-vessel cord has orthotopic insertion. Bladder: Normal in size. Extremities: All 4 extremities identified. IMPRESSION: 1. Single live intrauterine consistent with a 23 week 5 day gestation 2. facial profile and four-chamber heart not well visualized due to positioning. Approved by: Lorne Marie M.D. on 04/29/2021 at 14:07
== END ==
PROVIDERS: PCP Family Medicine; Referring Provider Family Medicine; Visit Provider Family Medicine
DX: Z36.89 Encounter for other specified antenatal screening (principal); Z3A.23 23 weeks gestation of pregnancy
CPT/HCPCS: 76811

== ENCOUNTER → 2021-06-21 13:13 | Outpatient (CLI) | payer OTHER, MEDICAID, SELFPAY ==
[2021-06-21 15:29] LABS: Add Manual Diff / Slide Review NO; Basophils Absolute Auto 0 /uL (0-100); Basophils Percent Auto 0.2 % (0-2); Eosinophils Absolute Auto 100 /uL (0-450); Eosinophils Percent Auto 0.7 % (2-4); Hematocrit 32.4 % (36-46); Lymphocytes Absolute Auto 2400 /uL (1100-4500); Lymphocytes Percent Auto 14.4 % (25-40); Mean Corpuscular HGB Conc 33.9 % (30-36); Mean Corpuscular Hemoglobin 30.8 PG (26-34); Mean Corpuscular Volume 90.7 fL (80-100); Monocytes Absolute Auto 1500 /uL (0-900); Neutrophils Absolute Auto 12700 /uL (1500-7000); Neutrophils Percent Auto 75.7 % (50-75); Platelet Count 333 X10^3/uL (150-400); Red Blood Cell Count 3.57 X10^6/uL (4.0-5.2); Red Cell Distribution Width 12.7 % (11.6-14.8); White Blood Cell Count 16.7 X10^3/uL (4.5-11.0)
[2021-06-21 15:47] LABS: GTT (PREG) 1 Hour PP 50gm Dose 102 mg/dL (76-139)
== END ==
PROVIDERS: PCP Family Medicine; Referring Provider Family Medicine; Visit Provider Family Medicine
DX: Z34.02 Encounter for supervision of normal first pregnancy, second trimester (principal); Z3A.26 26 weeks gestation of pregnancy
CPT/HCPCS: 82950; 85025

== ENCOUNTER → 2021-06-22 11:52 | Outpatient (CLI) | payer OTHER, MEDICAID, SELFPAY | PROVIDERS: PCP Family Medicine; Referring Provider Family Medicine; Visit Provider Family Medicine | DX: Z34.90 Encounter for supervision of normal pregnancy, unspecified, unspecified trimester (principal) | CPT/HCPCS: 36415; 86850 ==

== ENCOUNTER → 2021-08-03 11:33 | Outpatient (CLI) | payer OTHER, MEDICAID, SELFPAY ==
[2021-08-04 13:11] LABS: Strep Grp B PCR POS for Grp B Strep
== END ==
PROVIDERS: PCP Family Medicine; Visit Provider Family Medicine
DX: Z34.03 Encounter for supervision of normal first pregnancy, third trimester (principal); Z3A.37 37 weeks gestation of pregnancy
CPT/HCPCS: 87653

== ENCOUNTER 2021-08-24 10:26 | Inpatient (IN) | payer OTHER, MEDICAID, SELFPAY ==
[2021-08-24] MEDS: PENICILLIN G POTASSIUM 5,000,000 UNIT in DEXTROSE 5% IN WATER 250 ML 250 UNIT IV (11:55)
[2021-08-24] MEDS: LACTATED RINGERS 1,000 ML 100 ML IV ×3 (11:55→17:58)
--- NOTE | 2021-08-24 11:55 | PM.OBHP.IH.1 ---
OB HPI Date/Time Date of admission: 08/24/21 Date Patient Seen: 08/24/21 Time Patient Seen: 13:00 History of Present Condition Chief complaint: POSSIBLE LABOR GUSTABO Calculator Estimated Delivery Date Method Current WG Current Estimate 08/20/21 LMP (Certain) 40w 4d Other Estimates 08/23/21 Ultrasound #1 40w 1d 08/30/21 Ultrasound #2 39w 1d 08/20/21 Manual 40w 4d Final GUSTABO - JAMAL Estimated Gestational Age (weeks): 40w4d : 1 Para: 0 Narrative: Pt is a 21yo at 40w4d here with regular contractions. Pt reports contractions starting earlier this morning, increasing in intensity and frequency since then. She denies any vaginal bleeding or LOF. She is feeling her baby move regularly. Her has been uncomplicated. care: good care, initiated at week # and pounds weight gain Dating criteria OB: LMP confirmed by 1st trimester US Ultrasounds: normal 1st trimester US and normal mid trimester US Obstetrical complications: none Medical complications OB: none Preadmission Labs Last OB Lab Results: Blood Type O Negative 08/24/21 11:45 08/24/21 Antibody Screen Negative 08/24/21 11:45 08/24/21 Hematocrit 33.6 % (36-46) L 08/24/21 11:45 08/24/21 Hemoglobin 11.6 g/dL (12.0-16.0) L 08/24/21 11:45 08/24/21 Hepatitis B Surface Antigen Negative s/c (NEGATIVE) 02/16/21 10:58 02/16/21 Hepatitis C Antibody Negative s/c (NEGATIVE) 02/16/21 10:58 02/16/21 Rubella Antibody 28.8 IU/mL (>15) 02/16/21 10:58 02/16/21 Varicella-Zoster IgG Antibody 421 index (Immune >165) 02/16/21 10:58 02/16/21 Glucose 1 Hour 102 mg/dL (76-139) 06/21/21 14:36 06/21/21 Group B Streptococcus (PCR) Pos for grp b strep H 08/03/21 11:33 08/03/21 -: Urine: negative External Labs -: Urine: negative Evaluation Evaluation Baseline heart rate: 130 Variability: Moderate (11-25) monitor accelerations: Present Monitor Decelerations: Absent Contraction Frequency (minutes): 5 Status: Category l Dilation (cm): 3 Effacement (%): 80 station: -1 Position of cervix: mid Consistency: soft PFSH Medical History (Updated 03/05/21 @ 12:41 by Corinne Regalado DO) Acute hepatitis Asbestosis (~2017) Asthma Choledocholithiasis Cholelithiasis GERD (gastroesophageal reflux disease) Knee pain, right Ovarian cyst (~2020) Surgical History (Updated 01/27/21 @ 09:02 by Amalia Harry MD) Status post cholecystectomy Family History (Updated 01/18/21 @ 12:15 by Jamie Mondragon RN) Mother Mental health problem Father No problems noted. Grandmother No problems noted. Grandfather No problems noted. Grandmother No problems noted. Grandfather No problems noted. Social History marital status: unmarried,living together number of children: 0 household members: significant other lives independently: Yes caregiver/support person: No housing: apartment pets and animals: No education level: high school (to 11th grade.) occupational status: previously employed current occupational exposures/hazards: No seatbelt use: always helmet use: Yes water heater temp set < 120 deg: Yes working smoke detector in home: Yes fire extinguisher in home: Yes carbon monox detector in home: Yes firearms in home: No Smoking Status: Current every day smoker Tobacco: How many years used: 2 quit status: considering quitting second hand exposure: Yes (Others smoke in house ) alcohol intake: current substance use type: marijuana during the past year weight has: remained stable well-balanced diet: rarely or never daily servings fruits/ve-1 eating out: 1-3 times/week Meds Home Medications and Allergies Home Medications Medication Instructions Recorded Confirmed Type famotidine 10 mg tablet (Pepcid AC) 10 mg PO BID #60 tab 05/18/21 08/24/21 Rx double electric breast pump & #1 ea 06/08/21 08/24/21 Rx supplies Allergies Allergy/AdvReac Type Severity Reaction Status Date / Time Tide Laundry Detergent Allergy Intermediate Skin Uncoded 08/17/21 11:40 Irritation OB Exam Narrative Exam Narrative: Gen: NAD, sitting comfortably in bed, appears well CV: RRR, no murmurs Resp: clear to auscultation bilaterally Abd: soft, nontender, gravid Ext: no edema Objective Labs Result Diagrams: 08/24/21 11:45 Assessment and Plan Assessment and Plan Assessment and Plan narrative: 21yo at 40w4d here in active labor. No complications with . GBS positive, Rh positive. - Expectant management, anticipate - FHT reassuring - GBS positive, start antibiotic prophylaxis - Epidural in place for pain control
[2021-08-24 12:01] LABS: Add Manual Diff / Slide Review NO; Basophils Absolute Auto 100 /uL (0-100); Basophils Percent Auto 0.6 % (0-2); Eosinophils Absolute Auto 0 /uL (0-450); Eosinophils Percent Auto 0.2 % (2-4); Hematocrit 33.6 % (36-46); Hemoglobin 11.6 g/dL (12.0-16.0); Lymphocytes Absolute Auto 2200 /uL (1100-4500); Lymphocytes Percent Auto 13.6 % (25-40); Mean Corpuscular HGB Conc 34.4 % (30-36); Mean Corpuscular Volume 84.4 fL (80-100); Monocytes Absolute Auto 1200 /uL (0-900); Monocytes Percent Auto 7.8 % (3-14); Neutrophils Absolute Auto 12400 /uL (1500-7000); Neutrophils Percent Auto 77.8 % (50-75); Platelet Count 331 X10^3/uL (150-400); Red Blood Cell Count 3.98 X10^6/uL (4.0-5.2); Red Cell Distribution Width 13.2 % (11.6-14.8); White Blood Cell Count 15.9 X10^3/uL (4.5-11.0)
[2021-08-24 12:15] LABS: COVID19 -Nasal RAPID Negative (Negative)
[2021-08-24 12:47] VITALS: BP 129/79
[2021-08-24] MEDS: LIDOCAINE 2% (GLYDO) 6 ML GEL TOP (13:15)
[2021-08-24] MEDS: PENICILLIN G POTASSIUM 3,000,000 UNIT/50 ML FROZ.PIGGY 100 UNIT IV (15:54)
--- NOTE | 2021-08-24 17:34 | P.PNOB_ITS ---
Date/Time Date Patient Seen: 08/24/21 Time Patient Seen: 17:34 Pain Control Pain control: epidural Pelvic Exam Dilation (cm): 7 Effacement (%): 100 station: 0 Amniotic membrane status: Ruptured Comments: After informed consent, AROM performed with production of thick meconium-stained fluid. Contractions Contraction frequency (min): 2 Contraction pattern: Regular Contraction intensity: Strong/Firm Status status: Category l Heart Rate Baseline: 120 Monitor Accelerations: Present Monitor Decelerations: Absent Monitor Variability: Moderate Assessment and Plan Comments: 21yo at 40w4d here in active labor. GBS positive, Rh positive. After adequate GBS prophylaxis, AROM performed with production of thick meconium- stained fluid. - Expectant management, anticipate - FHT reassuring - Epidural in place for pain control - GBS positive, penicillin prophylaxis adequate
[2021-08-24] MEDS: OXYTOCIN PREMIX 30 UNIT/500 ML PLAST..BAG 200 UNIT IV (19:52)
--- NOTE | 2021-08-24 20:05 | PM.OBPRVD ---
Labor & Delivery Delivery date: 08/24/21 Intrapartal Events: None Cervical ripening method: none Induction method: none Delivery augmentation: rupture of membranes Delivery monitor: external FHT and external uterine Route of delivery: Episiotomy description: None L&D Laceration Description: Perineal - 1st Degree Quantitative Blood Loss: 100 Anesthesia Type: Epidural Complications: None Narrative: PROCEDURE: at 40w4d presented in active labor and was admitted to Labor and Delivery. The patient progressed through the 1st stage over 7 hours. Pain was controlled with an epidural. She received adequate GBS prophylaxis with penicillin. AROM was performed with production of thick meconium. The patient progressed through the 2nd stage over 47 minutes and delivered a viable female with APGARs 8/9 at 19:47 via without complications. The cord was cut and clamped after 2 minutes. The perineum and vagina were inspected with 1st degree perineal laceration repaired with 2-O Chromic. PREPROCEDURE DIAGNOSIS: Intrauterine at 40w4d GBS positive RH negative POSTPROCEDURE DIAGNOSIS: Intrauterine at 40w4d, delivered Same as preprocedure [place] Baby 1: gender: Female Presentation: vertex Position: Right Occiput Anterior Placenta delivery description: Spontaneous Cord Vessel Description: 3 Vessels score (1 min): 8 score (5 min): 9 weight: 8 lb 2.02 oz Plan for aftercare: Routine care
[2021-08-24] MEDS: ONDANSETRON 4 MG/2 ML INJ IV (20:38)
[2021-08-24 22:00] VITALS: TEMP 36.6
[2021-08-24] MEDS: IBUPROFEN 600 MG TABLET PO (22:00)
[2021-08-24] MEDS: DERMOPLAST SPRAY 20% 60 ML 1 SPRAY TOP (22:01)
[2021-08-24 23:56] VITALS: TEMP 36.6
[2021-08-24] MEDS: ACETAMINOPHEN 325 MG TABLET 650 MG PO (23:56)
[2021-08-25 04:05] VITALS: TEMP 36.4
[2021-08-25] MEDS: IBUPROFEN 600 MG TABLET PO ×4 (04:05→22:57)
[2021-08-25 06:44] VITALS: TEMP 36.3
[2021-08-25] MEDS: ACETAMINOPHEN 325 MG TABLET 650 MG PO ×3 (06:44→22:18)
[2021-08-25] MEDS: PRENATAL VIT,CALC/IRON/FOLIC 1 TABLET 1 TAB PO (10:01)
[2021-08-25] MEDS: DOCUSATE 100 MG CAPSULE PO (10:01)
[2021-08-25] MEDS: OXYCODONE IR 5 MG TABLET PO (11:18)
--- NOTE | 2021-08-25 17:37 | P.PNOB_ITS ---
Subjective - OB Subjective Date Patient Seen: 08/25/21 Time Patient Seen: 12:00 Interval history: The pt has had significant anxiety since delivery of her child, regarding feedings, diaper changes. This morning she reports significant RLQ abdominal pain that radiates to her back. She states it feels similar to when she has had ovarian cysts in the past. It makes her nauseous, and she has vomited due to the pain. She denies any dysuria, and did have a BM this morning already. The pt is ambulating without difficulty. Her lochia is decreasing appropriately . She is now formula feeding due to extreme anxiety with . Exam Narrative Exam Narrative: Gen: NAD, moving easily in room, transitioned into bed with ease CV: RRR, no murmurs Resp: clear to auscultation bilaterally Abd: soft, nontender, nondistended, normoactive bowel sounds, fundus firm and below umbilicus, no palpable back/CVA tenderness Ext: no edema Objective Labs Result Diagrams: 08/24/21 11:45 Labs: Laboratory Results - last 24 hr 08/25/21 06:02 Maternal Bleed Negative Assessment & Plan Plan Comments: 21yo PPD#1 s/p without complications. Pt with significant RLQ abdominal pain currently - not reproducible on exam, and resolving after pain medication. Unclear etiology, however based on exam low concern for appendicitis, ovarian torsion, or any other emergent condition. Will continue to monitor, and obtain pelvic ultrasound if pain persists. Pt does have severe anxiety regarding the care of her . Attempted without success to get the pt psychiatric care and counseling during her . Her mother will be able to support the care of the at home. Without this support, would potentially need to contact CPS due to the severity of care concerns. - Normal care - Will continue to address anxiety, pt currently declines medications - Feeding support for baby - Monitor abdominal pain Time Spent With Patient Time: Total time spent is greater than 50% in coordination of care (as documented) at patient's floor/unit and/or counseling patient: Time with patient: 25 - 35 minutes
[2021-08-26] MEDS: ACETAMINOPHEN 325 MG TABLET 650 MG PO ×2 (04:16→10:30)
[2021-08-26] MEDS: IBUPROFEN 600 MG TABLET PO ×2 (04:17→10:30)
[2021-08-26] MEDS: DOCUSATE 100 MG CAPSULE PO (10:30)
[2021-08-26] MEDS: PRENATAL VIT,CALC/IRON/FOLIC 1 TABLET 1 TAB PO (10:30)
--- NOTE | 2021-08-26 10:58 | P.DS_ITS ---
Discharge Providers Provider Date of admission: 08/24/21 10:26 Discharge Date: 08/26/21 Primary care physician: David Blair DO Consults: 08/25/21 20:04 Consult to Manager Biostatistics Routine Comment: Discharge provider: Amalia Harry MD Summary Hospital Course Date Patient Seen: 08/26/21 Time Patient Seen: 10:00 Diagnoses: 40w4d gestation GBS positive Rh negative Hospital Course: The pt presented in active labor. She received an epidural for pain control. AROM was performed with production of meconium-stained fluid. She received adequate GBS prophylaxis with penicillin. She progressed to complete and had an of a viable baby girl on 08/24/21. A first degree perineal laceration was then repaired. , the pt had significant anxiety initially regarding the care of her baby. She transitioned to formula for feeds. At the time of discharge, the pt was feeling significantly improved regarding her anxiety. She declined medications to help. She did receive Rhogam. At the time of discharge she was voiding, ambulating, and passing flatus without difficulty. Her lochia was decreasing appropriately. Her pain was well controlled. She will f/u in 6 weeks for check. Peripartum Data Delivery Method: Natural Vaginal Laceration Description: Perineal - 1st Degree Episiotomy description: None Procedures: Spontaneous vaginal delivery complications: none [place] 1: Gender: Female Disposition of : home Discharge Diagnosis (1) Anxiety disorder, unspecified: Status: Acute (2) Spontaneous vaginal delivery: Status: Acute Status at Discharge Cognitive/behavioral status at discharge: oriented Functional status at discharge: independent ambulation Overall status at discharge: patient is progressing back to baseline Time Spent with Patient Time attestation: Total time spent providing and/or coordinating discharge services: Objective Labs Result Diagrams: 08/24/21 11:45 Exam Narrative Exam Narrative: Gen: NAD, sitting comfortably in bed, appears well CV: RRR, no murmurs Resp: clear to auscultation bilaterally Abd: soft, appropriately tender, fundus firm and below the umbilicus, nondistended Ext: no edema Discharge Plan Discharge Plan Patient Disposition: Home Discharge orders & Medications Prescriptions: New acetaminophen 325 mg Tablet 650 mg PO Q6HR PRN (Reason: Pain, Mild (1-3)) Qty: 30 0RF docusate sodium 100 mg Capsule 100 mg PO DAILY Qty: 30 0RF ibuprofen 600 mg Tablet 600 mg PO Q6HR PRN (Reason: Pain, Mild (1-3)) Qty: 30 0RF Prenatabs Rx 29 mg iron- 1 mg Tablet 1 tab PO DAILY Qty: 90 2RF Continued (DME) double electric breast pump & supplies See Rx Instructions .Route .MEDSUPPLY Qty: 1 0RF Rx Instructions: use daily; as directed famotidine [Pepcid AC] 10 mg tablet 10 mg PO BID Qty: 60 2RF Follow up/Referrals: Amalia Harry MD [Physician] - 6 Weeks David Blair, [Primary Care Provider] - Diet/Activity/Treatments Diet: Diet as Tolerated and Regular Skin/Wound/Dressing Care Report to your healthcare provider any signs of infection, such as:: chills, fever, night sweats and unusual drainage Visit Report/Discharge Packet Instructions: DI for Labor and Delivery, Vaginal Visit Report Forms: Patient Portal/API, Stroke Signs & Symptoms Discharge Data Primary Care Provider: David Blair Discharges patient from system. Discharge Date/Time: 08/26/21 12:42
[2021-08-26] MEDS: RHO(D) IMMUNE GLOBULIN 1,500 UNIT SYRINGE 1500 UNIT IM (12:28)
[2021-08-26 12:40] VITALS: BP 110/66; PULSE 78; RESP 18; TEMP 36.6
== END 2021-08-26 12:42 | disposition home or self-care (01) | DRG 560 ==
PROVIDERS: Admitting Provider Family Medicine; PCP Family Medicine; Referring Provider Family Medicine; Visit Provider Family Medicine
DX: O48.0 Post-term pregnancy (principal); O99.344 Other mental disorders complicating childbirth; F41.9 Anxiety disorder, unspecified; Z3A.40 40 weeks gestation of pregnancy; Z37.0 Single live birth; O99.824 Streptococcus B carrier state complicating childbirth; P03.82 Meconium passage during delivery; O70.0 First degree perineal laceration during delivery; Z20.822 Contact with and (suspected) exposure to COVID-19
CPT/HCPCS: 01967; 36415; 59025; 59050; 59409; 85025; 85461; 86850; 86900; 86901; 87635; C9803; G0379; J2405; J2540; J2590; J2790

== ENCOUNTER → 2022-05-24 11:38 | Outpatient (CLI) | payer OTHER, MEDICAID, SELFPAY ==
[2022-05-24 12:35] LABS: Add Manual Diff / Slide Review NO; Basophils Absolute Auto 100 /uL (0-100); Basophils Percent Auto 0.9 % (0-2); Eosinophils Absolute Auto 100 /uL (0-450); Eosinophils Percent Auto 1.4 % (2-4); Hematocrit 35.3 % (36-46); Hemoglobin 12.1 g/dL (12.0-16.0); Lymphocytes Absolute Auto 2600 /uL (1100-4500); Mean Corpuscular HGB Conc 34.4 % (30-36); Mean Corpuscular Hemoglobin 30.2 PG (26-34); Mean Corpuscular Volume 87.8 fL (80-100); Monocytes Absolute Auto 500 /uL (0-900); Neutrophils Absolute Auto 3500 /uL (1500-7000); Neutrophils Percent Auto 51.7 % (50-75); Platelet Count 291 X10^3/uL (150-400); Red Blood Cell Count 4.02 X10^6/uL (4.0-5.2); Red Cell Distribution Width 13.8 % (11.6-14.8); White Blood Cell Count 6.7 X10^3/uL (4.5-11.0)
[2022-05-24 13:00] LABS: Alanine Aminotransferase 63 IU/L (<35); Albumin 4.2 g/dL (3.5-5.0); Albumin Globulin Ratio 1.4 (1.0-2.8); Alkaline Phosphatase 61 U/L (38-126); Aspartate Aminotransferase 43 IU/L (14-36); BUN Creatinine Ratio 14.8 (6-22); Bilirubin Total 0.6 mg/dL (0.2-1.3); Blood Urea Nitrogen 8 mg/dL (7-17); Calcium 8.6 mg/dL (8.4-10.2); Carbon Dioxide 28 mmol/L (22-32); Chloride 101 mmol/L (98-107); Estimated Glomerular Filt Rate > 60 mL/min (>60); Globulin 3.1 g/dL (1.7-4.1); Glucose 84 mg/dL (70-100); HEMOLYSIS < 15 (0-50); Potassium 4.4 mmol/L (3.4-5.1); Sodium 139 mmol/L (137-145); Total Protein 7.3 g/dL (6.3-8.2)
[2022-05-24 13:34] LABS: TSH w/ Reflex to FT4 0.21 uIU/mL (0.47-4.68)
[2022-05-24 13:59] LABS: Free T4, Direct Thyroxine 1.19 ng/dL (0.78-2.19)
== END ==
PROVIDERS: PCP Family Medicine; Referring Provider Family Medicine; Visit Provider Family Medicine
DX: R42 Dizziness and giddiness (principal); R53.83 Other fatigue
CPT/HCPCS: 36415; 80053; 84439; 84443; 85025